=== PATIENT | female | born 1940 | race Caucasian/White ===

== ENCOUNTER → 2016-11-24 | Outpatient (CLI) | payer OTHER ==
--- NOTE | ~2016-11-24 | CT57 ---
[facility] A Service of [facility] RADIOLOGY TEXT RESULTS PATIENT: SHELDON ATKINS LOCATION: [facility] : 38 UNIT #: [id number] AGE: [address]: Madi Turpin MD SEX: F ORDER DR: [id number] [facility]. [place], [place] [address] [id number] O MR#: [id number] Acc #: [id number] NAME: SHELDON ATKINS : 1940 SEX: F STUDY DATE/TIME: 11/24/2016 14:03 UNIT: [facility] ROOM: STUDY DESCRIPTION: CT Chest Wo Cont Attending Physician: Madi Turpin M.D. Referring Physician: Madi Turpin M.D. Ordering Physician: Madi Turpin M.D. Primary Care Physician: Sadie Whitlock M.D. MEDICAL IMAGING REPORT This report is preliminary unless electronic signature is present EXAM CT chest without contrast INDICATION 76-year-old female with history of followup pulmonary nodule. TECHNIQUE CT scan of the chest was performed without contrast. Coronal, sagittal reformatted images obtained. This CT examination was performed with one or more of the following radiation dose reduction techniques: automatic exposure control, adjustment of mA and/or kV according to patient size, and iterative reconstruction. COMPARISON 05/29/2016. FINDINGS Emphysema. Scarring in the lung apices. Calcified granuloma right middle lobe. Bilateral lower lobe scarring. Redemonstrated is a fluid attenuation structure in the anterior mediastinum which is unchanged in size and appearance and is most likely benign. No suspicious lymphadenopathy. Coronary artery calcification. No pleural effusion. Tiny hiatal hernia. Limited imaging of the upper abdomen demonstrates previous cholecystectomy. The bone windows are unremarkable. IMPRESSION Stable chest CT. No suspicious finding. Dictated by... Choco Taylor M.D. THIS IS AN ELECTRONICALLY VERIFIED REPORT [facility] A Service of [facility] RADIOLOGY TEXT RESULTS PATIENT: SHELDON ATKINS LOCATION: [facility] : 38 UNIT #: [id number] AGE: [address]: Madi Turpin MD SEX: F ORDER DR: Choco Taylor M.D. at 11/26/2016 8:37 AM KETURAH/johanna TD: 11/25/2016 14:06 JOB #: [id number] MEDICAL IMAGING REPORT Page 1 of 1 COPY
== END | disposition home or self-care (01) ==
LOC: CCAT 13:41
DX: R91.1 Solitary pulmonary nodule (principal)
CPT/HCPCS: 71250